=== PATIENT | male | born 2005 | race African-American/Black ===

== ENCOUNTER 2025-02-22 03:31 | Emergency (ER) | payer OTHER | END 2025-02-22 04:15 | LOC: EEVIPCON 03:31 → NAV ERS 03:31 | DX: S62.316A Displaced fracture of base of fifth metacarpal bone, right hand, initial encounter for closed fracture (principal); W20.8XXA Other cause of strike by thrown, projected or falling object, initial encounter | CPT/HCPCS: 29125; 99283 ==